=== PATIENT | male | born 1995 | race Hispanic/Latino ===

== ENCOUNTER 2018-05-24 04:54 | Emergency (ER) | payer OTHER ==
[2018-05-24] MEDS ORDERED: FLUORESCEIN SODIUM 0.6 MG/WRAP ONE (05:16)
[2018-05-24] MEDS ORDERED: TETRACAINE HCL 0.5% 2ML OPTH ONE (05:16)
--- NOTE | 2018-05-24 06:10 | ER ---
Nurse's Notes [facility] Name: Sumeet Schneider IV Age: 22 yrs Sex: Male : 1995 Arrival Date: 05/24/2018 Time: 05:01 Bed 6 Private MD: Diagnosis: left corneal abrasion Presentation: 05/24 05:17 Presenting complaint: Patient states: he was mowing the grass earlier today and thinks bb he may have gotten something in his left eye, it is irritated and watering. Transition of care: patient was not received from another setting of care. Onset of symptoms was May 23, 2018. Risk Assessment: Do you want to hurt yourself or someone else? Patient reports no desire to harm self or others. Initial Sepsis Screen: Does the patient meet any 2 criteria? No. Patient's initial sepsis screen is negative. Does the patient have a suspected source of infection? No. Patient's initial sepsis screen is negative. Care prior to arrival: None. 05:17 Method Of Arrival: Ambulatory bb 05:17 Acuity: MARCELA 4 bb Triage Assessment: 05:19 General: Appears in no apparent distress. Behavior is calm, cooperative. Pain: bb Complains of pain in left eye. EENT: Eyes left sclera reddened with watery discharge. Neuro: Level of Consciousness is awake, alert, obeys commands, Oriented to person, place, time, situation. Cardiovascular: No deficits noted. Respiratory: Respiratory effort is even, unlabored. Derm: Skin is pink, warm \T\ dry. Musculoskeletal: Circulation, motion, and sensation intact. Historical: - Allergies: 05:19 No Known Allergies; bb - Home Meds: 05:19 None [Active]; bb - PMHx: 05:19 hearing problem; bb - PSHx: 05:19 tubes in ears; bb - Immunization history:: Adult Immunizations up to date. - Social history:: Smoking status: Patient/guardian denies using tobacco, Patient/guardian denies using alcohol. - Ebola Screening: : No symptoms or risks identified at this time. - Family history:: not pertinent. - Hospitalizations: : No recent hospitalization is reported. - History obtained from: pt is deaf. all communication done by writing back and forth on a piece of paper. pt lip reads very well as well. Screenin:21 Abuse screen: Denies threats or abuse. Nutritional screening: No deficits noted. bb Tuberculosis screening: No symptoms or risk factors identified. Fall Risk None identified. Assessment: 05:21 Reassessment: No changes from previously documented assessment. see triage assessment. bb 06:26 Reassessment: Patient and/or family updated on plan of care and expected duration. Pain bb level reassessed. Patient is alert, oriented x 3, equal unlabored respirations, skin warm/dry/pink. pt verbalized understanding of and agrees to plan of care discharge instructions given pt ambulated with steady gait to exit accompanied by family Patient states feeling better. Vital Signs: 05:19 BP 127 / 70; Pulse 72; Resp 16 S; Temp 98.8(O); Pulse Ox 100% on R/A; Weight 76.2 kg bb (R); Height 5 ft. 1 in. (154.94 cm) (R); 06:27 BP 142 / 65; Pulse 57; Resp 16 S; Temp 98.5(O); Pulse Ox 97% on R/A; bb 05:19 Body Mass Index 31.74 (76.20 kg, 154.94 cm) bb ED Course: 05:01 Patient arrived in ED. es 05:16 Justyna Nunes, RN is Primary Nurse. bb 05:18 Triage completed. bb 05:19 Arm band placed on Patient placed in an exam room, on a stretcher, on pulse oximetry. bb 05:21 Patient has correct armband on for positive identification. Bed in low position. Call bb light in reach. Adult w/ patient. 05:26 Zackary Kimball MD is Attending Physician. wa 06:27 No provider procedures requiring assistance completed. Patient did not have IV access bb during this emergency room visit. Administered Medications: 05:16 Drug: Tetracaine Drops 0.5 % 1 drops Route: Ophthalmic; Site: left eye; bb 06:26 Follow up: Response: No adverse reaction; Pain is decreased bb Outcome: 06:09 Discharge ordered by . wa 06:27 Discharged to home ambulatory, with family. bb 06:27 Condition: stable 06:27 Discharge instructions given to patient, Instructed on discharge instructions, follow up and referral plans. medication usage, Demonstrated understanding of instructions, follow-up care, medications, Prescriptions given X 1. 06:28 Patient left the ED. bb Signatures: Sondra Fuentes Brenda, RN RN bb Zackary Kimball MD MD wa
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
== END 2018-05-24 06:28 | disposition home or self-care (01) ==
LOC: ER 04:54
DX: S05.02XA Injury of conjunctiva and corneal abrasion without foreign body, left eye, initial encounter (principal); X58.XXXA Exposure to other specified factors, initial encounter; Y93.H2 Activity, gardening and landscaping; Y92.89 Other specified places as the place of occurrence of the external cause; Y99.8 Other external cause status
CPT/HCPCS: 99283